=== PATIENT | male | born 1945 ===

== ENCOUNTER 2018-04-04 07:05 | Day surgery (SDC) | payer MEDICARE ==
[~2018-04-04] VITALS: Ht 165.1 cm; Wt 97.6 kg
[~2018-04-04 07:05] MED LIST: ACET500 PO; ASPI325 PO; ATOR40TA PO; CLOP75 PO; LISI5 PO; METO25ER; METO25ER PO; ROXICODONE5 MG PO
== END 2018-04-04 09:05 | disposition home or self-care (01) ==
LOC: ORSCSDS 07:05
PROVIDERS: Ophthalmology
PROC: 08RJ3JZ Replacement of Right Lens with Synthetic Substitute, Percutaneous Approach (ICD-10-PCS; principal; 2018-04-04 08:30)
DX: H25.11 Age-related nuclear cataract, right eye (principal); I25.10 Atherosclerotic heart disease of native coronary artery without angina pectoris; E66.9 Obesity, unspecified; Z68.35 Body mass index [BMI] 35.0-35.9, adult
CPT/HCPCS: J2250; J3010; J3301; J7120; V2632

== ENCOUNTER 2018-04-25 07:36 | Day surgery (SDC) | payer MEDICARE ==
[~2018-04-25] VITALS: Ht 162.6 cm; Wt 97.2 kg
[~2018-04-25 07:36] MED LIST changes: +Coq-10100 MG PO; +Pravachol40 MG PO; +Toprol Xl25 MG PO
--- NOTE | 2018-04-25 11:02 | NUR ---
04/25/18 1102 Penny Fairchild 0950 DC'D VIA TO CAR W/SBA X1. CHRISTINA PO WELL. NO C/O. COPIES OF INSTRUCTIONS FOR CARE AND F/U WERE GIVEN
== END 2018-04-25 09:50 | disposition home or self-care (01) ==
LOC: ORSCSDS 07:36
PROVIDERS: Ophthalmology
PROC: 08RK3JZ Replacement of Left Lens with Synthetic Substitute, Percutaneous Approach (ICD-10-PCS; principal; 2018-04-25 09:00)
DX: H25.12 Age-related nuclear cataract, left eye (principal); E66.01 Morbid (severe) obesity due to excess calories; Z68.36 Body mass index [BMI] 36.0-36.9, adult; I10 Essential (primary) hypertension; I25.10 Atherosclerotic heart disease of native coronary artery without angina pectoris; Z79.899 Other long term (current) drug therapy
CPT/HCPCS: J2250; J3010; J3301; J7120; V2632

== ENCOUNTER 2018-06-18 08:34 | Day surgery (SDC) | payer MEDICARE, OTHER ==
[~2018-06-18] VITALS: Ht 162.6 cm; Wt 97.7 kg
--- NOTE | 2018-06-18 09:34 | NUR ---
Ambulatory in Day Surgery History, Chart, Medications and Allergies reviewed before start of procedure. Lungs clear T/O to Auscultation. Patient confirms NPO status and agrees with scheduled surgery. Pre-Op teaching done. Pt verbalizes understanding.
--- NOTE | 2018-06-18 17:00 | NUR ---
assumed care of pt. post op vss continue and are stable, pt a/0 x 4, pleasant/cooperative, states to no n/v, pain at /10, has been medicated per mar, will reassess. pt's in room, states she will stay the night
--- NOTE | 2018-06-18 18:12 | NUR ---
pt states pain is at 6/10, ambulated to bathroom, up in chair with ice and PAS on, states pain is at 4/10 following ambulating and medicated per mar, will reassess. pt's has requested pt be medicated again. this RN educated pt and on narcotic pain administration and possible effects in elderly including confusion and respiratory suppression. will medicate per mar and reassess, reposition, provide cryotherapy and NSAIDs per mar. pt with urinaty output >400 ml.
[2018-06-19 05:28] LABS: BASOPHILS ABSOLUTE AUTO 0.02 K/mm3 (0.00-0.23); BASOPHILS PERCENT AUTO 0 % (0-2); EOSINOPHILS PERCENT AUTO 0 % (0-6); Hematocrit 45.2 % (37.0-53.0); Hemoglobin 14.7 g/dL (13.5-17.5); IMMATURE GRAN ABSOLUTE AUTO 0.08 K/mm3 (0.00-0.10); IMMATURE GRAN PERCENT AUTO 1 % (0-1); LYMPHOCYTES ABSOLUTE AUTO 0.64 K/mm3 (0.84-5.20); LYMPHOCYTES PERCENT AUTO 4 % (21-46); MONOCYTES ABSOLUTE AUTO 0.76 K/mm3 (0.16-1.47); MONOCYTES PERCENT AUTO 5 % (4-13); Mean Corpuscular HGB 30.6 pg (26.0-34.0); Mean Corpuscular HGB Conc 32.5 g/dL (31.5-36.5); Mean Corpuscular Volume 94 fL (80-100); Mean Platelet Volume 10.1 fL (9.1-12.4); NEUTROPHILS ABSOLUTE AUTO 14.73 K/mm3 (1.96-9.15); NEUTROPHILS PERCENT AUTO 91 % (41-73); Platelet Count 240 K/mm3 (150-400); RDW Coefficient Variation 12.8 % (11.7-14.2); RDW Standard Deviation 44.6 fL (35.1-46.3); White Blood Cell Count 16.23 K/mm3 (4.00-11.30)
[2018-06-19 06:04] LABS: Anion Gap 5 mmol/L (6-16); Blood Urea Nitrogen 17 mg/dL (8-24); Bun/Creatinine Ratio 22.9 (12.0-20.0); CO2, Blood 26 mmol/L (21-32); Calcium, Blood 7.9 mg/dL (8.5-10.1); Chloride, Blood 106 mmol/L (98-108); Creatinine, Blood 0.74 mg/dL (0.60-1.20); Glomerular Filtration Rate >60 (60-); Glucose, Blood 147 mg/dL (70-99); Magnesium, Blood 2.3 mg/dL (1.6-2.4); Potassium, Blood 4.7 mmol/L (3.5-5.5); Sodium, Blood 137 mmol/L (136-145)
[2018-06-19] MEDS ORDERED: ASPI325EC PO (13:15)
[2018-06-19] MEDS ORDERED: ACET500 PO (13:15)
[2018-06-19] MEDS ORDERED: OXYC5 PO (13:16)
--- NOTE | 2018-06-19 16:23 | NUR ---
removed peripherl IV WNL, PROVIDED DISCHARGE INSTRUCTIONS AND PRINTED MATERIALS, PROVIDED WITH PRESCRIPTION FOR ANALGESIA, PROVIDED WITH 2 AQUACEL DRESSINGS, DIRECTOR [facility]UR[facility], SOCK AND SHOE ASSIST TOOLS. PT AND STATE UNDERSTANDING OF DISCHARGE INSTRUCTIONS. PT AND BOTH ESCORTED TO VEHICLE VIA WHEELCHAIR BY 2 NURSING STAFF MEMBERS, BELONGINGS PLACED IN VEHICLE.
== END 2018-06-19 16:00 | disposition home or self-care (01) ==
LOC: ORSCMMR 08:34 → ORD 10:30 → ORSCMMR 10:30 → SURS 15:15 → ORSCMMR 06-19 16:00
PROVIDERS: Orthopaedic Surgery
PROC: 0SRD0J9 Replacement of Left Knee Joint with Synthetic Substitute, Cemented, Open Approach (ICD-10-PCS; principal; 2018-06-18 10:30)
DX: M17.12 Unilateral primary osteoarthritis, left knee (principal); I25.10 Atherosclerotic heart disease of native coronary artery without angina pectoris; G47.33 Obstructive sleep apnea (adult) (pediatric); E66.01 Morbid (severe) obesity due to excess calories; Z68.37 Body mass index [BMI] 37.0-37.9, adult; Z79.899 Other long term (current) drug therapy
CPT/HCPCS: 36415; 73560-LT; 80048; 83735; 85025; 88300; 97110; 97116; 97162; C1713; C1776; J0171; J0690; J1100; J1885; J2250; J2405; J2704; J2795; J7120